=== PATIENT | male | born 1990 | race Caucasian/White ===

== ENCOUNTER 2021-11-22 09:18 | Emergency (ER) | payer BC ==
[2021-11-22 12:22] LABS: HEMOGLOBIN 16.1 gm/dl (14.0-17.5); RED BLOOD COUNT 5.57 M/UL (4.20-5.50); WHITE BLOOD COUNT 4.3 K/UL (4.5-11.0)
[2021-11-22 12:39] LABS: BUN/CREATININE RATIO 8 (0-10)
== END 2021-11-22 15:25 | disposition left against medical advice (07) ==
LOC: ER1 09:18
PROVIDERS: Physician Assistant
DX: R42 Dizziness and giddiness (principal)
CPT/HCPCS: 70450; 80053; 85025; 99283